=== PATIENT | female | born 1950 | race Native Hawaiian/Other Pacific Islander ===

== ENCOUNTER 2018-06-06 06:20 | Outpatient (CLI) | payer OTHER ==
[2018-06-06 06:45] LABS: PLATELET COUNT 306 K/uL (152-353)
[2018-06-06 07:03] LABS: POTASSIUM 4.4 mmol/L (3.6-5.2)
== END 2018-06-06 23:42 | disposition home or self-care (01) ==
LOC: LABW 06:20
PROVIDERS: Nurse Practitioner
DX: K29.70 Gastritis, unspecified, without bleeding (principal); E78.5 Hyperlipidemia, unspecified; E11.9 Type 2 diabetes mellitus without complications
CPT/HCPCS: 36415; 80053; 80061; 83036; 84436; 84443; 85027

== ENCOUNTER 2019-01-20 06:20 | Outpatient (CLI) | payer OTHER ==
[2019-01-20 07:55] LABS: PLATELET COUNT 329 K/uL (152-353)
[2019-01-20 08:13] LABS: POTASSIUM 4.1 mmol/L (3.6-5.2)
== END 2019-01-20 19:35 | disposition home or self-care (01) ==
LOC: LABW 06:20
PROVIDERS: Internal Medicine
DX: E11.9 Type 2 diabetes mellitus without complications (principal); E78.49 Other hyperlipidemia; I10 Essential (primary) hypertension
CPT/HCPCS: 36415; 80053; 80061; 83036; 84439; 84443; 85027

== ENCOUNTER → 2019-01-22 | Outpatient (CLI) | payer OTHER | LOC: LABW 14:00 | DX: K64.0 First degree hemorrhoids (principal) | CPT/HCPCS: 82272 ==

== ENCOUNTER 2020-04-09 12:45 | Outpatient (CLI) | payer OTHER | END 2020-04-09 22:07 | disposition home or self-care (01) | LOC: LABW 12:45 | DX: R05 Cough (principal) | CPT/HCPCS: 87070; 87205 ==

== ENCOUNTER 2021-12-04 11:53 | Emergency (ER) | payer OTHER ==
[~2021-12-04] VITALS: Ht 165.1 cm; Wt 59.0 kg
[2021-12-04 12:53] LABS: PLATELET COUNT 373 K/uL (152-353)
[2021-12-04 12:59] LABS: POTASSIUM 4.2 mmol/L (3.6-5.2)
[2021-12-04 19:16] VITALS: BP 110/63; TEMP 98.6
== END 2021-12-04 19:34 | disposition home or self-care (01) ==
LOC: ED 11:53
PROVIDERS: Emergency Medicine
DX: K52.89 Other specified noninfective gastroenteritis and colitis (principal)
CPT/HCPCS: 80053; 81000; 83690; 85027; 96360; 96374; 96375; 99284; J2270; J2405; J3490